=== PATIENT | female | born 1940 | race Caucasian/White ===

== ENCOUNTER → 2024-11-16 | Outpatient (CLI) | payer MEDICARE ==
[2024-11-16 15:31] LABS: BASO # 0.02 K/mm3 (0.02-0.10); EOS # 0.05 K/mm3 (0.04-0.40); EOS % 0.8 % (1.0-5.0); HEMATOCRIT 43.8 % (37.0-47.0); HEMOGLOBIN 14.1 g/dL (12.5-16.0); LYMPH# 1.75 K/mm3 (1.50-4.00); MEAN CELL VOLUME 92 fl (78-100); MEAN CORPUSCULAR HEMOGLOBIN 30 pg (27-31); MEAN CORPUSCULAR HGB CONC 32 g/dL (33-37); NEU # 4.08 K/mm3 (1.40-6.50); PLATELET COUNT 308 K/mm3 (130-400); RED BLOOD COUNT 4.74 M/mm3 (4.10-5.30); RED CELL DISTRIBUTION WIDTH 12.8 % (11.5-14.5); WHITE BLOOD COUNT 6.5 K/mm3 (4.8-10.8)
[2024-11-16 15:39] LABS: ALBUMIN 4.3 g/dL (3.4-4.8)
[2024-11-16 15:40] LABS: CALCIUM 9.7 mg/dL (8.3-10.5)
[2024-11-16 15:41] LABS: TOTAL PROTEIN 7.3 g/dL (6.2-8.1)
[2024-11-16 15:43] LABS: TOTAL BILIRUBIN 0.3 mg/dL (0.2-1.2)
== END ==
LOC: LAB 15:06
PROVIDERS: Family Medicine
DX: E78.5 Hyperlipidemia, unspecified (principal); I10 Essential (primary) hypertension